=== PATIENT | female | born 1955 | race Caucasian/White ===

== ENCOUNTER 2024-09-08 13:42 | Emergency (ER) | payer OTHER ==
[~2024-09-08] VITALS: Ht 162.6 cm; Wt 75.0 kg
[2024-09-08 13:46] VITALS: O2SAT 98
[2024-09-08 14:17] LABS: CHLORIDE 108 mEq/L (98-107); POTASSIUM 3.3 mEq/L (3.5-5.1); SODIUM 139 mEq/L (136-145)
[2024-09-08 14:18] LABS: BASOPHILS % 1.3 % (0.0-2.0); CARBON DIOXIDE 22 mEq/L (21-32); EOSINOPHILS % 2.4 % (0.0-5.0); HEMATOCRIT. 40.6 % (36.0-48.0); HEMOGLOBIN. 13.5 g/dL (12.0-16.0); LYMPHOCYTES % 41.5 % (20.0-50.0); MEAN CORPUSCULAR HEMOGLOBIN 29.5 pg (28.0-32.0); MEAN CORPUSCULAR HGB CONC 33.3 g/dL (31.0-37.0); MEAN CORPUSCULAR VOLUME 88.7 fL (81.0-99.0); MEAN PLATELET VOLUME 7.9 fl (7.4-10.4); MONOCYTES % 7.2 % (2.0-8.0); NEUTROPHILS % 47.6 % (40.0-76.0); PLATELET 290 x1000/uL (130-400); RED BLOOD CELL COUNT 4.58 mill/uL (4.2-5.4); RED CELL DISTRIBUTION WIDTH 13.9 % (11.6-14.6); WHITE BLOOD COUNT 8.9 x1000/uL (4.5-11.0)
[2024-09-08 14:19] LABS: CALCIUM 9.5 mg/dL (8.7-10.4)
[2024-09-08 14:23] LABS: CREATININE 0.8 mg/dL (0.6-1.0); GLUCOSE 101 mg/dL (70-105); UREA NITROGEN BLOOD 20 mg/dL (9-23)
[2024-09-08 14:39] LABS: TROPONIN I HIGH SENSITIVITY < 4 ng/L (3.0-34)
[2024-09-08] MEDS: SODIUM CHLORIDE 0.9% 1,000 ML IV ONE (14:57)
[2024-09-08] MEDS: ACETAMINOPHEN 325MG TABLET PO ONE (15:07)
[2024-09-08] MEDS: KETOROLAC 15MG/ML VIAL IV ONE (15:08)
[2024-09-08] MEDS: DIPHENHYDRAMINE 50MG/ML VIAL IV ONE (15:08)
[2024-09-08] MEDS: MECLIZINE 25MG TABLET PO ONE (15:08)
[2024-09-08 17:08] LABS: TROPONIN I HIGH SENSITIVITY < 4 ng/L (3.0-34)
[2024-09-08 18:10] VITALS: BP 124/66; PULSE 61; RESP 18; TEMP 36.6; O2SAT 98
== END 2024-09-08 18:37 | disposition home or self-care (01) ==
LOC: ER 14:39
DX: R55 Syncope and collapse (principal); E78.00 Pure hypercholesterolemia, unspecified; E03.9 Hypothyroidism, unspecified; Z79.899 Other long term (current) drug therapy
CPT/HCPCS: 99285; 96360; 70450; 71045; 80048; 83880; 85025; 84484; 36415; 93005; J7030; J1200; J1885